=== PATIENT | female | born 1990 | race African-American/Black ===

== ENCOUNTER 2017-12-26 12:40 | Emergency (ER) | payer MEDICAID ==
[~2017-12-26 12:40] MED LIST: ACYC200C PO; NOR-0.35 PO; PRENCAP6 PO
--- NOTE | 2017-12-26 15:32 | PD ---
HPI Chief Complaint Cramping, pressure, UTI Travel History International Travel<30 Days: No Contact w/Intl Traveler<30Days: No Known Affected Area: No History of Present Illness HPI 27-year-old 032, IUP at 16.2 care complicated by UTI, recent cervical length 2.7 cm The patient presents complaining of constant lower abdominal cramping and pressure. She reports that although the cramping is in pressure or constant sometimes they are worse than other times but she is unable to delineate a specific pattern. She denies any contractions or intermittent cramping that would be consistent with contractions. She reports that she had some spotting on and presented to the ED at [facility] and was diagnosed with a urinary tract infection. She reports that she did not fill the Macrobid prescription that she was given. She discussed that she spoke with her doctor' s office today because of the cramping they recommended that she present for further evaluation. She denies any leaking of fluid or vaginal bleeding. She denies any contractions. Reports that she has been feeling intermittent movements. She denies any fever, chills, nausea, vomiting. She denies any back pain or flank pain. She denies any other concerns today. Weeks Gestation: 16 Para: 2 : 6 Miscarriage: 2 : 1 History Past Medical History Medical History: Denies Significant Hx Obstetric History Obstetric History G6P 2031 1 1 EAB 1 SAB 2 Past Surgical History Narrative Surgical delivery 1 Family History Family History: Negative Social History Alcohol Use: No Tobacco Use: No Substance Abuse: No Allergies-Medications (Allergen,Severity, Reaction): Coded Allergies: latex (Unverified Adverse Reaction, Intermediate, RASH, 03/31/17) pt was told she had reaction as a child, but not sure what??? Home Meds Active Scripts Norethindrone (Contraceptive) (Nor-Qd) 0.35 Mg Tab, 0.35 MG PO DAILY, #1 TAB 6 Refills Prov:Melanie Bah 04/09/16 Acyclovir 200 mg (Acyclovir 200 mg) 200 Mg Cap, 400 MG PO Q12HR, #60 CAP Prov:Jeanine Griffin MD R3 03/02/16 Reported Medications Mv & Min W/Fe Fumarat ( 1) Cap, 1 CAP PO DAILY, CAP 02/28/16 Review of Systems Except as stated in HPI: all other systems reviewed are Neg Physical Exam Narrative GENERAL: Well-nourished, well-developed patient. SKIN: Warm and dry. HEAD: Normocephalic and atraumatic. EYES: No scleral icterus. No injection or drainage. ENT: No nasal drainage noted. Mucous membranes pink. Airway patent. NECK: Supple, trachea midline. No JVD. CARDIOVASCULAR: Regular rate and rhythm without murmurs, gallops, or rubs. RESPIRATORY: Breath sounds equal bilaterally. No accessory muscle use. BREASTS: Deferred ABDOMEN/GI: Abdomen soft, non-tender, bowel sounds present, no rebound, no guarding Gravid GENITOURINARY: External Genitalia: intact and normal in appearance. Normal BUS. No cervical or vaginal masses noted. Physiologic discharge. Grossly normal rugated. SVE closed/thick/high/posterior. FHT's: heart tones are appropriate for gestational age and documented in the EMR. EXTREMITIES: No cyanosis or edema. BACK: Nontender without obvious deformity. No CVAT. NEUROLOGICAL: Awake and alert. Motor and sensory grossly within normal limits. Normal speech. Psychiatric: Grossly normal memory and affect Musculoskeletal: Grossly normal range of motion, gait, muscle strength MDM Plan Assessment/plan: 1. IUP at 16.2 2. UTI: Patient was diagnosed with a UTI 2 days ago but not yet initiated antibiotic therapy. There is no evidence of pyelonephritis. Urinalysis shows large leukocytes, few bacteria, WBCs. Rocephin 1 g was given IV with 1 L IV fluids and the patient's symptoms were improved with IV fluids. The patient was picked up her prescription for Macrobid 100 mg p.o. twice daily 5 days and will initiate this medication in the a.m. strict pyelonephritis precautions were given. Patient to follow-up on urine culture results with her primary OB in 2 days 3. well-being: heart tones are appropriate for gestational age 4. Cervical length 2.7 cm: Discussed with patient that this is borderline low cervical length with 2.5 typically considered normal. Advised pelvic rest and light activity. Advised minimal activity for the weekend and patient to follow- up with primary OB on Thursday. There is no evidence of threatened labor with no contractions on tocometry and the patient denies contractions. SVE closed. 5. History of delivery 1 6. Follow-up with primary OB in 2 days or sooner if needed Diagnosis Diagnosis: Primary Impression: 16 weeks gestation of Additional Impression: UTI (urinary tract infection) Disposition: 01 DISCHARGE HOME Condition: Melanie Reynolds MD December 26, 2017 15:32
[2017-12-26] MEDS ORDERED: cefTRIAXone INJ 1,000 MG in SODIUM CHLORIDE 0.9% INJ 100 ML IV ONE (15:45)
[2017-12-26] MEDS ORDERED: LACTATED RINGER'S 1000 ML INJ 1,000 ML IV ONE (15:45)
[2017-12-26 15:48] LABS: BACTERIA, URINE FEW /hpf; BILIRUBIN, URINE NEG (NEG); BLOOD, URINE NEG (NEG); GLUCOSE,URINE NEG (NEG); KETONE, URINE NEG (NEG); NITRITE,URINE NEG (NEG); PH, URINE 6.5 (5.0-8.5); SQUAMOUS EPITHELIAL CELL URINE 4 /hpf (0-5); URINE COLOR LIGHT-YELLOW (YELLW/STRAW); URINE LEUKOCYTE ESTERASE LARGE (NEG); WHITE BLOOD CELL CLUMPS OCC
== END 2017-12-26 16:34 | disposition home or self-care (01) ==
LOC: HOBED 12:40
DX: O23.42 Unspecified infection of urinary tract in pregnancy, second trimester (principal); Z3A.16 16 weeks gestation of pregnancy
CPT/HCPCS: 81001; 87086; 96374; 99284; J0696; J7120

== ENCOUNTER 2018-06-13 10:03 | Inpatient (IN) ==
[2018-06-13] MEDS ORDERED: Oxytocin 30 Units/500ml Premix 30 UNITS/500 ML BAG IV.SIG ONE (10:54)
[2018-06-13] MEDS ORDERED: Naloxone Inj 0.4 MG/ML Vial IV.PUSH PRN ×2 (10:54→21:44)
[2018-06-13] MEDS ORDERED: Sod Chloride 0.9% Inj 1,000 ML IV.CONT PRN (10:54)
[2018-06-13] MEDS ORDERED: fentaNYL Citrate Inj 100 MCG/2 ML Ampul IV.PUSH PRN ×2 (10:54)
[2018-06-13] MEDS ORDERED: Sodium Chlor 0.9% Inj 500 ML IV.SIG PRN (10:54)
--- NOTE | 2018-06-13 10:54 | ED ---
History of Present Illness Primary Care Physician: No Primary Care Physician Chief Complaint: leaking fluid History of Present Illness: Patient is a 27 yo who presents at 40 weeks and 6 days with c/o leaking fluid vaginally. Patient reports small gush first noted at 14:00 06-12-2018,initially cloudy and intermittent leaks since. Leaks are now clear. EDC 06-07-2018. 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 She was being scheduled for IOL tomorrow. Pt of Dr Miller. Pt was 2-3 cm in office when last checked. GBS negative. Patient taking Valtrex. Reports active movements. No fevers or chills. Weeks Gestation:: 40 Para: 2 : 6 Total # of Abortions (Spontaneous & Elective): 3 - Inpatient Certification I certify that the inpatient services were ordered in accordance with Medicare regulations governing the order. This includes certification that hospital inpatient services are reasonable and necessary and in the case of services not specified as inpatient-only under 42 CFR 419.22(n), that they are appropriately provided as inpatient services in accordance to with the 2-midnight benchmark under 43 CFR 412.3(e) Estimated Total Length of Stay (Days): 3 Plans for Post Hospital Care: Home Review of Systems All other systems reviewed negative except as stated in HPI PMFSH - History History Provided By: Patient - Medical History Medical History: Medical History (Last Updated 06/13/18 @ 10:42 by Rob Bass MD) Abnormal breast biopsy Patient denies medical problems - Surgical History Surgical History: Surgical History (Last Reviewed 06/06/18 @ 14:09 by Antonina Palacios) Hx of section - Social History I have reviewed the patient's Social History: Yes - Tobacco History Second Hand Smoke Exposure: No Smoking Status: Never smoker - Alcohol History How Often Do You Have a Drink Containing Alcohol: Never - Substance Use History Substance History: No History of Abuse - Travel History History of Recent Travel: No Medications and Allergies Allergies Allergy/AdvReac Type Severity Reaction Status Date / Time latex AdvReac Intermediate RASH Verified 06/13/18 10:16 Home Medications Medication Instructions Recorded Confirmed Type valacyclovir [Valtrex] 500 mg PO BID 06/09/18 06/13/18 History Exam Vital signs: Vital Signs 06/13/18 10:15 06/13/18 10:18 Temperature 97.9 F Pulse Rate 88 Respiratory Rate 17 Blood Pressure 120/75 Intake & Output 06/12/18 06/13/18 06/13/18 18:59 06:59 18:59 Weight 63.503 kg Narrative: GENERAL: Well-nourished, well-developed patient. SKIN: Warm and dry. HEAD: Normocephalic and atraumatic. EYES: No scleral icterus. No injection or drainage. ENT: No nasal drainage noted. Mucous membranes pink. Airway patent. NECK: Supple, trachea midline. No JVD. CARDIOVASCULAR: Regular rate and rhythm without murmurs, gallops, or rubs. RESPIRATORY: Breath sounds equal bilaterally. No accessory muscle use. BREASTS: Bilateral exam showed no masses , no retractions, no nipple discharge. ABDOMEN/GI: Abdomen soft, non-tender, bowel sounds present, no rebound, no guarding Gravid to [40] weeks size Fundal Height: [-] GENITOURINARY: External Genitalia: intact and normal in appearance. No HSV lesions noted. BUS glands: [wnl] Cervix: [soft] Dilatation: [3cm] Effacement: [80%] Station: [0] Presentation: [vertex] Membranes: [grossly ruptured] AMNIOSURE positive Uterine Contractions: [occasional] FHT's: Category: [1] Baseline: [130s] Reactive: [-] Variability: [moderate] Decels: [none] EXTREMITIES: No cyanosis or edema. BACK: Nontender without obvious deformity. No CVA tenderness. NEUROLOGICAL: Awake and alert. Motor and sensory grossly within normal limits. Five out of 5 muscle strength in all muscle groups. Normal speech. - Constitutional no acute distress Assessment and Plan - Diagnosis (1) 40 weeks gestation of Code(s): Z3A.40 - 40 weeks gestation of Status: Acute (2) Rupture of amniotic sac under 24 hours before onset of labor Code(s): O42.90 - Premature rupture of membranes, unspecified as to length of time between rupture and onset of labor, unspecified weeks of gestation Status : Acute Qualifiers: PROM onset of labor timing: onset of labor within 24 hours of rupture (3) Previous section complicating Code(s): O34.219 - Maternal care for unspecified type scar from previous delivery Status: Acute Plan: Plans GBS negative. Discussed with Dr Lubin, attending covering for Dr Miller. Discharge Plan - Discharge Disposition Patient Disposition: 30 Still Patient - Discharge Condition Condition: Good - Discharge Details Diagnosis: 40 weeks gestation of , History of delivery affecting , Spontaneous rupture of amniotic membranes, Desires (vaginal after ) trial - Physicians Team ED Provider: Rob Bass Primary Care Provider: Primary Care Kristine Torres
[2018-06-13] MEDS ORDERED: Citric Acid/Sodium Citrate Liq 30 ML UDC PO SCH (11:00)
[2018-06-13 11:31] LABS: Baso % (Auto) 0.5 % (0.0-2.0); Eos # (Auto) 0.1 th/mm3 (0.0-0.4); Hematocrit 32.7 % (35.0-46.0); Lymph # (Auto) 1.3 th/mm3 (1.0-4.8); Mean Corpuscular HGB Conc 33.8 % (32.0-36.0); Mean Corpuscular Hemoglobin 31.1 pg (27.0-34.0); Mean Corpuscular Volume 92.1 fL (80.0-100.0); Mono # (Auto) 0.7 th/mm3 (0.0-0.9); Neut # (Auto) 6.2 th/mm3 (1.8-7.7); Neut % (Auto) 74.5 % (16.0-70.0); Platelet Count 315 th/mm3 (150-450); Red Blood Count 3.55 mil/mm3 (4.00-5.30); Red Cell Distribution Width 13.4 % (11.6-17.2); White Blood Count 8.3 th/mm3 (4.0-11.0)
[2018-06-13 11:54] LABS: Bilirubin,Urine Negative (Negative); Clarity,Urine Hazy (Clear); Color,Urine Yellow (Yellw/Straw); Glucose,Urine (UA) Negative (Negative); Leukocyte Esterase,Urine Negative (Negative); Mucus,Urine Many /lpf (Occasional); Nitrite,Urine Negative (Negative); Squamous Epithelial Cell,Urine 16 /hpf (0-5)
[2018-06-13 11:56] LABS: Amphetamine Urine With Conf Neg (Neg); Benzodiazepine Urine With Conf Neg (Neg)
[2018-06-13] MEDS ORDERED: Oxytocin 30 Units/500ml Premix 30 UNITS/500 ML BAG IV.CONT PRN ×2 (11:59→21:44)
[2018-06-13] MEDS ORDERED: Measles/Mumps/Rubella Vaccine Inj 0.5 ML Vial SQ ONE (16:00)
[2018-06-13] MEDS ORDERED: Diphtheria/Tetanus/Pertussis Vaccine Inj 0.5 ML Syringe IM ONE (16:00)
[2018-06-13] MEDS ORDERED: fentaNYL 2MCG-Bupiv 0.125% Epi 150 ML EPIDURAL ONE (16:57)
[2018-06-13] MEDS ORDERED: Lidocaine PF 1% Inj 5 ML Vial ONE (16:59)
[2018-06-13] MEDS ORDERED: Lidocaaine 1.5%/Epinephrine 1:200,000 PF Inj 5 ML Amp ONE (16:59)
[2018-06-13] MEDS ORDERED: fentaNYL 2MCG-Bupiv 0.125% Epi 150 ML EPIDURAL PRN (17:33)
[2018-06-13] MEDS: fentaNYL Citrate Inj 100 MCG/2 ML Ampul EPIDURAL ONE ×2 (18:18→18:19)
[2018-06-13] MEDS ORDERED: valACYclovir 500 MG Tab PO SCH (21:00)
[2018-06-13] MEDS ORDERED: Witch Hazel 50%/Glyderin 12.5% 40 Pad Jar RECTAL PRN (21:44)
[2018-06-13] MEDS ORDERED: Zolpidem Tartrate 5 MG Tablet PO PRN (21:44)
[2018-06-13] MEDS ORDERED: Benzocaine 20% Top Spray 60 ML Can TOPICAL PRN (21:44)
[2018-06-13] MEDS ORDERED: Bisacodyl 10 MG Supp RECTAL PRN (21:44)
--- NOTE | 2018-06-13 21:48 | P.OBDELI ---
Weeks Gestation: 40 Patient Started Active Labor: Yes Active Labor Start Date: 06/13/18 Medical Induction of Labor: No Artificial Rupture of Membrane: No Anesthesia: Epidural Episiotomy: none Vaginal Delivery: Normal Presentation: Occiput anterior Nuchal Cord: None Delayed Cord Clamping (45 sec): Yes Placenta: Spontaneous delivery, Intact, Uterus explored +, 3 vessel cord : Female Female A Weight: 3.147 kg score (1 min): 8 score (5 min): 9 (Beautiful delivery of baby girl. Intact perineum with a few skid [place]. Family present. Uterus explored and the scar was intact. ..)
[2018-06-14] MEDS: Acetaminophen 325 MG Tablet PO PRN ×2 (07:11→16:28)
--- NOTE | 2018-06-14 08:02 | P.PNOB ---
Subjective Post day: 1 Interval history: PPD#1, s/p , doing well, breast feeding. Objective Vital Signs/I&O: Vital Signs 06/13/18 10:15 06/13/18 10:18 06/13/18 11:45 Temperature 97.9 F Pulse Rate 88 Respiratory Rate 17 18 Blood Pressure 120/75 06/13/18 12:21 06/13/18 13:13 06/13/18 13:47 Temperature 98.1 F 98.1 F Pulse Rate 84 18 L 119 H Respiratory Rate 18 18 18 Blood Pressure 111/74 100/71 127/81 06/13/18 14:21 06/13/18 15:00 06/13/18 16:02 Temperature 98.3 F Pulse Rate 84 106 H 93 H Respiratory Rate 18 18 Blood Pressure 111/79 116/75 120/91 H 06/13/18 16:11 06/13/18 16:37 06/13/18 17:11 Temperature 97.5 F L Pulse Rate 74 95 H Respiratory Rate 18 18 Blood Pressure 96/75 L 156/111 H 06/13/18 17:16 06/13/18 17:25 06/13/18 17:31 Temperature Pulse Rate 86 124 H 92 H Respiratory Rate Blood Pressure 109/96 H 89/73 L 84/70 L 06/13/18 17:33 06/13/18 17:35 06/13/18 17:46 Temperature Pulse Rate 86 100 H Respiratory Rate 18 Blood Pressure 101/54 L 117/90 06/13/18 18:01 06/13/18 18:05 06/13/18 18:13 Temperature Pulse Rate 90 73 Respiratory Rate 18 Blood Pressure 104/55 L 100/58 L 06/13/18 18:25 06/13/18 18:31 06/13/18 18:35 Temperature Pulse Rate 86 89 93 H Respiratory Rate Blood Pressure 99/61 L 81/56 L 95/60 L 06/13/18 18:38 06/13/18 18:40 06/13/18 18:56 Temperature 97.6 F Pulse Rate 95 H Respiratory Rate 18 Blood Pressure 99/64 L 102/51 L 06/13/18 20:15 06/13/18 20:35 06/13/18 21:32 Temperature Pulse Rate 82 106 H 90 Respiratory Rate 18 20 Blood Pressure 109/76 124/78 103/90 06/13/18 21:40 06/13/18 21:46 06/13/18 22:01 Temperature 98.9 F Pulse Rate 78 81 Respiratory Rate 22 Blood Pressure 94/76 L 116/70 06/13/18 22:16 06/13/18 22:29 06/13/18 22:31 Temperature Pulse Rate 95 H 100 H Respiratory Rate 20 Blood Pressure 83/44 L 109/84 06/13/18 23:29 06/14/18 00:00 Temperature 98.7 F Pulse Rate 95 H Respiratory Rate 18 18 Blood Pressure 115/75 Intake & Output 06/13/18 06/14/18 06/14/18 18:59 06:59 18:59 Weight 63.503 kg Result Diagrams: 06/13/18 10:45 Objective Remarks: GENERAL: Well-nourished, well-developed patient. CARDIOVASCULAR: Regular rate and rhythm without murmurs, gallops, or rubs. RESPIRATORY: Breath sounds equal bilaterally. No accessory muscle use. ABDOMEN/GI: Abdomen soft, non-tender. Fundus: Firm, non-tender at umbilicus. GENITOURINARY: Light to moderate bleeding. EXTREMITIES: No cyanosis or edema, non-tender, without signs of DVT. Medications and IVs: Active Medications Acetaminophen (Tylenol) 650 mg PO Q4H PRN PRN Reason: PAIN SCALE 1 TO 2 Last Admin: 06/14/18 07:11 Dose: 650 mg Al Hydroxide/Mg Hydroxide (Milk Of Zuleika Liq) 30 ml PO Q12H PRN PRN Reason: Mild Constipation Benzocaine (Americaine 20% [place]) 1 spray TOPICAL Q4H PRN PRN Reason: For Perineum Discomfort Bisacodyl (Dulcolax Supp) 10 mg RECTAL DAILY PRN PRN Reason: SEVERE CONSITIPATION Oxytocin (Pitocin 30 Units/Ns 500 Ml Premix) 30 units in 500 mls @ 1 mls/hr IV.CONT TITRATE PRN; Protocol PRN Reason: For induction of labor Last Admin: 06/13/18 12:18 Dose: 1 milliunit/min, 1 mls/hr Oxytocin (Pitocin 30 Units/Ns 500 Ml Premix) 30 units in 500 mls @ 100 mls/hr IV.CONT UNSCH PRN PRN Reason: Heavy bleeding Ibuprofen (Motrin) 800 mg PO Q8H PRN PRN Reason: For Cramping Last Admin: 06/14/18 06:33 Dose: 800 mg Lactulose (Lactulose Liq) 30 ml PO DAILY PRN PRN Reason: SEVERE CONSITIPATION Naloxone HCl (Narcan Inj) 0.1 mg IV.PUSH Q2M PRN PRN Reason: for opiate reversal Ondansetron HCl (Zofran Odt) 4 mg PO Q6H PRN PRN Reason: NAUSEA OR VOMITING Last Admin: 06/14/18 00:22 Dose: 4 mg Senna/Docusate Sodium (Allison-Colace) 1 tab PO BID MARQUISE Sennosides (Senokot) 17.2 mg PO Q12H PRN PRN Reason: Moderate Constipation Sodium Chloride (Ns Flush) 2 ml IV.FLUSH BID MARQUISE Sodium Chloride (Ns Flush) 2 ml IV.FLUSH PRN PRN PRN Reason: FLUSH AFTER USING IV ACCESS [place]/Glycerin (Tucks Pads) 1 applicatio RECTAL QID PRN PRN Reason: HEMORRHOIDS Zolpidem Tartrate (Ambien) 5 mg PO HS PRN PRN Reason: SLEEP Assessment and Plan - Plan PPD#1, , stable Discharge Planning: Routine
[2018-06-14] MEDS: Senna/Docusate Sodium 8.6/50 MG Tablet PO SCH ×2 (09:11→21:00)
[2018-06-14 09:12] VITALS: O2SAT 97
[2018-06-15 08:29] VITALS: BP 117/83; PULSE 66
[2018-06-15 08:30] VITALS: RESP 20; TEMP 98
[2018-06-15] MEDS: Senna/Docusate Sodium 8.6/50 MG Tablet PO SCH (15:24)
== END 2018-06-15 18:24 | disposition home or self-care (01) ==
LOC: HOBED 10:03 → H2E 10:27 → H1EA 23:33
PROVIDERS: ADMIT Obstetrics & Gynecology; ATTEND Obstetrics & Gynecology